=== PATIENT | male | born 1960 | race Caucasian/White ===

== ENCOUNTER → 2017-02-22 | Outpatient (CLI) | payer OTHER ==
[~2017-02-22] MED LIST: INDOCIN50 MG PO; MOBIC7.5 MG PO; NORCO 5/3251 TABLET PO; OXYCODONE-APAP1 EACH PO; PANTOPRAZOLE SO40 MG PO; TRAMADOL HCL50 MG PO; VALIUM5 MG PO
== END | disposition home or self-care (01) ==
LOC: NUC 11:00
DX: C79.51 Secondary malignant neoplasm of bone (principal)
CPT/HCPCS: 78306; A9503

== ENCOUNTER 2017-12-09 15:36 | Inpatient (IN) | payer SELFPAY ==
[~2017-12-09] VITALS: Ht 180.3 cm; Wt 115.0 kg
[2017-12-09 16:32] LABS: HEMATOCRIT 36.4 % (38.0-50.0); MCH 26.7 PG (29.0-34.0); MCV 81.1 FL (86-99); PLATELET COUNT 318 K/uL (156-360); RBC DIS.WIDTH-CV 13.8 % (11.8-14.6); RBC DIS.WIDTH-SD 40.7 % (39-53); RED BLOOD COUNT 4.49 M/uL (4.00-5.50); WHITE BLOOD COUNT 13.8 K/uL (4.1-10.2)
[2017-12-09 16:46] LABS: CHLORIDE 104 mEq/L (99-109); POTASSIUM 4.1 mEq/L (3.7-5.4); SODIUM 136 mEq/L (136-147)
[2017-12-09 16:48] LABS: GLUCOSE 124 mg/dL (70-99)
[2017-12-09 16:51] LABS: CREATININE 0.9 mg/dL (0.6-1.3); GFR ESTIMATE (CALCULATED) > 59 mL/min/ (58.99-99999)
[2017-12-09 16:52] LABS: UREA NITROGEN (BUN) 14 mg/dL (9-23)
[2017-12-09 17:01] LABS: ALBUMIN 3.9 g/dL (3.2-4.8)
[2017-12-09 17:04] LABS: TOTAL PROTEIN 7.2 g/dL (6.4-8.3)
[2017-12-09 17:04] LABS: APPEARANCE CLEAR ((CLEAR)); BILIRUBIN NEGATIVE; BLOOD SMALL; COLOR YELLOW ((YELLOW)); GLUCOSE (STRIP) NEGATIVE; KETONES NEGATIVE; LEUKOCYTES NEGATIVE; NITRITE NEGATIVE; PROTEIN (STRIP) 30; SPECIFIC GRAVITY 1.025 (1.000-1.030)
[2017-12-09 17:06] LABS: BACTERIA RARE /HPF; EPITHELIAL CELLS RARE /HPF; MUCUS TRACE /LPF; RED BLOOD CELLS 30-40 /HPF (0-5); UCUL ADDED? NO; WHITE BLOOD CELLS 0-5 /HPF (0-5)
[2017-12-09 17:06] LABS: TOTAL BILIRUBIN 1.5 mg/dL (0.0-1.0)
[2017-12-09 17:07] LABS: ALKALINE PHOSPHATASE 280 IU/L (3-129)
[2017-12-09 17:09] LABS: AST (GOT) 61 IU/L (2-34)
[2017-12-09 17:10] LABS: ALT (GPT) 59 IU/L (3-49); DIRECT BILIRUBIN 0.5 mg/dL (0.0-0.3)
[2017-12-09 17:11] LABS: LIPASE 16 U/L (1.0-51.0)
[2017-12-09 19:06] LABS: INTER. NORMALIZED RATIO 1.3
[2017-12-09 19:08] LABS: PTT 29.7 SEC (25-37)
[2017-12-09] MEDS ORDERED: CALCIUM 600 +1 EA16 PO (19:25)
[2017-12-09] MEDS ORDERED: CASODEX50 MG PO (19:26)
[2017-12-09] MEDS ORDERED: ALEVE220 MG PO (19:27)
[2017-12-09 20:32] VITALS: BP 137/75
[2017-12-09 23:35] VITALS: BP 125/58
[2017-12-10 03:37] VITALS: BP 130/71
[2017-12-10 06:08] LABS: HEMATOCRIT 33.1 % (38.0-50.0); HEMOGLOBIN 10.9 G/DL (12.5-16.6); MCH 26.8 PG (29.0-34.0); MCHC 32.9 G/DL (30.0-36.0); MCV 81.5 FL (86-99); PLATELET COUNT 280 K/uL (156-360); RBC DIS.WIDTH-CV 13.9 % (11.8-14.6); RBC DIS.WIDTH-SD 40.9 % (39-53); RED BLOOD COUNT 4.06 M/uL (4.00-5.50); WHITE BLOOD COUNT 10.8 K/uL (4.1-10.2)
[2017-12-10 06:37] LABS: ALBUMIN 3.4 G/DL (3.2-4.8); ALKALINE PHOSPHATASE 236 IU/L (3-129); ALT (GPT) 43 IU/L (3-49); AST (GOT) 43 IU/L (2-34); CHLORIDE 107 MEQ/L (99-109); CREATININE 0.8 MG/DL (0.6-1.3); GFR ESTIMATE (CALCULATED) > 59 mL/min/ (58.99-99999); GLUCOSE 110 mg/dL (70-99); SODIUM 137 MEQ/L (136-147); TOTAL BILIRUBIN 0.7 MG/DL (0.0-1.0); TOTAL PROTEIN 5.7 G/DL (6.4-8.3); UREA NITROGEN (BUN) 18 mg/dL (9-23)
[2017-12-10 07:15] VITALS: BP 116/69
[2017-12-10 15:42] VITALS: BP 115/64
[2017-12-10 19:20] VITALS: BP 143/78
[2017-12-11 07:30] VITALS: BP 132/77
[2017-12-11 16:00] VITALS: BP 144/76
[2017-12-12 00:30] VITALS: BP 141/79
[2017-12-12 06:51] LABS: BASOPHIL (%) 0.6 % (0-1); BASOPHIL COUNT 0.1 K/uL (0-0.1); EOSINOPHIL (%) 1.9 % (0-5); EOSINOPHIL COUNT 0.2 K/uL (0-0.3); HEMATOCRIT 33.4 % (38.0-50.0); IMMATURE GRANULOCYTE (%) 0.8 % (0.0-0.7); LYMPHOCYTE (%) 29.7 % (15-42); LYMPHOCYTE COUNT 2.6 K/uL (1.0-2.8); MCH 26.9 PG (29.0-34.0); MCHC 32.9 G/DL (30.0-36.0); MCV 81.7 FL (86-99); MONOCYTE (%) 7.9 % (3-12); MONOCYTE COUNT 0.7 K/uL (0-0.8); NEUTROPHIL (%) 59.1 % (45-76); NEUTROPHIL COUNT 5.2 K/uL (1.8-6.4); PLATELET COUNT 334 K/uL (156-360); RBC DIS.WIDTH-CV 13.7 % (11.8-14.6); RBC DIS.WIDTH-SD 41.1 % (39-53); RED BLOOD COUNT 4.09 M/uL (4.00-5.50); WHITE BLOOD COUNT 8.8 K/uL (4.1-10.2)
[2017-12-12 07:36] LABS: ALBUMIN 3.1 G/DL (3.2-4.8); ALKALINE PHOSPHATASE 265 IU/L (3-129); ALT (GPT) 44 IU/L (3-49); AST (GOT) 35 IU/L (2-34); CHLORIDE 104 MEQ/L (99-109); CREATININE 0.9 MG/DL (0.6-1.3); DIRECT BILIRUBIN 0.1 mg/dL (0.0-0.3); GFR ESTIMATE (CALCULATED) > 59 mL/min/ (58.99-99999); GLUCOSE 98 mg/dL (70-99); POTASSIUM 4.7 MEQ/L (3.7-5.4); SODIUM 138 MEQ/L (136-147); TOTAL PROTEIN 5.6 G/DL (6.4-8.3); UREA NITROGEN (BUN) 11 mg/dL (9-23)
[2017-12-12 07:40] VITALS: BP 139/71
[2017-12-12 07:47] LABS: TOTAL BILIRUBIN 0.5 MG/DL (0.0-1.0)
[2017-12-12] MEDS ORDERED: ENDOCET 5-3251 EACH PO ×2 (11:53→11:54)
== END 2017-12-12 13:52 | disposition home or self-care (01) | DRG 436 ==
LOC: EME 15:36 → 5EAST 19:25 → EDOF 19:25 → ENRESERV 19:28 → 5EAST 20:24
PROVIDERS: Emergency Medicine; Internal Medicine; Student in an Organized Health Care Education/Training Program
DX: C78.7 Secondary malignant neoplasm of liver and intrahepatic bile duct (principal); C79.51 Secondary malignant neoplasm of bone; C61 Malignant neoplasm of prostate; E83.51 Hypocalcemia; N32.9 Bladder disorder, unspecified
CPT/HCPCS: 71046; 71250; 74178; 76705; 80048; 80053; 80076; 81003; 83690; 85025; 85027; 85610; 85730; 86850; 86900; 86901; 99281; 99285; J0610; J1650; J2270; J7030; J7040; J7050

== ENCOUNTER 2017-12-14 12:11 | Emergency (ER) | payer SELFPAY ==
[~2017-12-14] VITALS: Ht 180.3 cm; Wt 114.3 kg
[~2017-12-14 12:11] MED LIST changes: +ALEVE220 MG PO; +CALCIUM 600 +1 EA16 PO; +CASODEX50 MG PO; +ENDOCET 5-3251 EACH PO
[2017-12-14 13:43] LABS: APPEARANCE CLEAR ((CLEAR)); BILIRUBIN NEGATIVE; BLOOD NEGATIVE; COLOR YELLOW ((YELLOW)); GLUCOSE (STRIP) NEGATIVE; KETONES NEGATIVE; LEUKOCYTES NEGATIVE; NITRITE NEGATIVE; PROTEIN (STRIP) NEGATIVE; SPECIFIC GRAVITY 1.028 (1.000-1.030); UROBILINOGEN 0.2 MG/DL (0.2-1.0)
[2017-12-14 14:11] LABS: HEMATOCRIT 35.5 % (38.0-50.0); HEMOGLOBIN 11.4 G/DL (12.5-16.6); MCH 26.6 PG (29.0-34.0); MCHC 32.1 G/DL (30.0-36.0); MCV 82.9 FL (86-99); PLATELET COUNT 424 K/uL (156-360); RBC DIS.WIDTH-CV 14.1 % (11.8-14.6); RBC DIS.WIDTH-SD 42.5 % (39-53); RED BLOOD COUNT 4.28 M/uL (4.00-5.50); WHITE BLOOD COUNT 8.5 K/uL (4.1-10.2)
[2017-12-14 14:19] LABS: ALBUMIN 3.8 g/dL (3.2-4.8); CHLORIDE 109 mEq/L (99-109); POTASSIUM 4.3 mEq/L (3.7-5.4); SODIUM 142 mEq/L (136-147)
[2017-12-14 14:22] LABS: GLUCOSE 97 mg/dL (70-99); TOTAL PROTEIN 7.4 g/dL (6.4-8.3)
[2017-12-14 14:24] LABS: TOTAL BILIRUBIN 0.4 mg/dL (0.0-1.0)
[2017-12-14 14:25] LABS: CREATININE 0.8 mg/dL (0.6-1.3); GFR ESTIMATE (CALCULATED) > 59 mL/min/ (58.99-99999)
[2017-12-14 14:27] LABS: ALKALINE PHOSPHATASE 405 IU/L (3-129); AST (GOT) 87 IU/L (2-34); UREA NITROGEN (BUN) 22 mg/dL (9-23)
[2017-12-14 14:28] LABS: ALT (GPT) 91 IU/L (3-49)
[2017-12-14] MEDS ORDERED: ULTRAM50 MG PO (16:15)
[2017-12-14 16:35] VITALS: BP 157/93
== END 2017-12-14 16:35 | disposition home or self-care (01) ==
LOC: EME 12:11
PROVIDERS: Nurse Practitioner Family
DX: R10.32 Left lower quadrant pain (principal); R59.0 Localized enlarged lymph nodes; R30.0 Dysuria; R20.0 Anesthesia of skin; R91.8 Other nonspecific abnormal finding of lung field; Z85.46 Personal history of malignant neoplasm of prostate; Z85.830 Personal history of malignant neoplasm of bone
CPT/HCPCS: 74177; 80053; 81003; 85027; 99281; 99285; J7030